=== PATIENT | male | born 1965 | race Asian ===

== ENCOUNTER 2018-04-03 19:43 | Emergency (ER) | payer OTHER ==
[2018-04-03 19:59] VITALS: BP 143/81; TEMP 98.8; BMI 25.4
--- NOTE | 2018-04-03 19:59 | PDOC ---
Rapid Medical Evaluation Time Seen by Provider: 04/03/18 19:55 Medical Evaluation: I have performed a brief in-person evaluation of this patient. The patient presents with a chief complaint of: atraumatic left ankle pain today. patient states he cannot walk. Patient is a diabetic Pertinent physical exam findings: pain with palpation of left ankle mortisse. no swelling, erythema, edema or crepitus I have ordered the following: left ankle xray The patient will proceed to the ED for further evaluation.
--- NOTE | 2018-04-03 21:45 | PDOC ---
History of Present Illness - General Chief Complaint: Pain Stated Complaint: LEG PAIN Time Seen by Provider: 04/03/18 19:55 - History of Present Illness Initial Comments: 52-year-old male presents for evaluation of atraumatic left ankle pain. He denies prior problems with the left ankle. Describes this pain as sharp exacerbated with activity and weightbearing relieved with rest and free of radiation. He points to the posterior aspect in the anterior lateral aspect of the left ankle as the area of his discomfort area 04/03/18 21:41 Past History - Past Medical History Allergies/Adverse Reactions: Allergies Allergy/AdvReac Type Severity Reaction Status Date / Time Sulfa (Sulfonamide Allergy Verified 04/03/18 19:57 Antibiotics) Home Medications: Ambulatory Orders Acarbose [Precose -] 25 mg PO TID 04/03/18 Aspirin [Aspirin EC] 81 mg PO ASDIR 04/03/18 Atorvastatin Calcium 10 mg PO ASDIR 04/03/18 Empagliflozin [Jardiance] 25 mg PO ASDIR 04/03/18 Gabapentin 600 mg PO ASDIR 04/03/18 Glipizide/Metformin HCl [Glipizide-Metformin 5-500 mg] 1 each PO ASDIR 04/03/18 Insulin (LOG) Aspart [NovoLOG -] 0 units SQ BID 04/03/18 Insulin Glargine,Hum.rec.anlog [Basaglar Kwikpen U-100] 100 unit SQ ASDIR Methylprednisolone [Medrol Dose Christian] 4 mg PO ASDIR #21 tablet 04/03/18 Ramipril 5 mg PO ASDIR 04/03/18 Sitagliptin Phos/Metformin HCl [Janumet 50-500 mg Tablet] 1 each PO ASDIR COPD: No Diabetes: Yes HTN: Yes Hypercholesterolemia: Yes Other medical history: back pain - Surgical History Appendectomy: Yes - Suicide/Smoking/Psychosocial Hx Smoking History: Never smoked Review of Systems - Review of Systems Constitutional: Yes: See HPI. No: Chills, Diaphoresis, Fever, Malaise, Night Sweats Musculoskeletal: Yes: Joint Pain, Joint Swelling, Joint Stiffness. No: Back Pain, Gout, Muscle Pain *Physical Exam - Vital Signs Last Vital Signs Temp Pulse Resp BP Pulse Ox 98.8 F 100 H 18 143/81 96 04/03/18 19:58 04/03/18 19:58 04/03/18 19:58 04/03/18 19:58 04/03/18 19:58 - Physical Exam Comments: Right lower extremity is normal skin color and temperature he has full nonpainful range of motion at the knee and ankle without any tenderness Left lower extremity full nonpainful range of motion of the knee by A soft and nontender. Left ankle there is mild swelling about the anterior lateral aspect of the left ankle there is tenderness about the anterior lateral joint line and posterior aspect of the ankle in the area of the insertion of the Achilles tendon. He has negative Mcarthur's test is Achilles tendon is intact his left foot is nontender. He has no gross sensory or motor deficits no evidence of instability neurovascularly intact 04/03/18 21:43 Medical Decision Making - Medical Decision Making Left ankle and foot x-rays have been reviewed there is no acute fracture he has mild degenerative changes no destructive process I will get a uric acid level 04/03/18 21:44 04/03/18 22:33 This is either acute uric acid crystal gout versus pseudogout calcium pyrophosphate. I will start him on a Medrol Dosepak and have him follow-up with orthopedic surgery 04/03/18 22:35 I've advised him on the use of the Medrol Dosepak and explained to him that this may raise his blood glucose he will monitor his glucose levels and adjust his diet accordingly. 04/03/18 22:36 Vital signs were checked prior to discharge his pulse came down *DC/Admit/Observation/Transfer Diagnosis at time of Disposition: Gout attack - Referrals Referrals: Mj Olmedo MD [Primary Care Provider] - Sam Issa MD [Staff Physician] - - Patient Instructions - Post Discharge Activity
[2018-04-03 22:40] VITALS: PULSE 80
== END 2018-04-03 22:40 | disposition home or self-care (01) ==
LOC: JERFT 19:43
DX: M10.9 Gout, unspecified (principal); I10 Essential (primary) hypertension; E11.9 Type 2 diabetes mellitus without complications; Z79.4 Long term (current) use of insulin; Z79.84 Long term (current) use of oral hypoglycemic drugs; E78.00 Pure hypercholesterolemia, unspecified
CPT/HCPCS: 36415; 73610-TC-LT-FY; 73630-TC-LT; 84550; 99281-25

== ENCOUNTER 2018-08-14 08:44 | Day surgery (SDC) | payer OTHER ==
[2018-08-11 15:49] VITALS: BMI 26.2
[2018-08-14 10:00] VITALS: TEMP 97.7
[2018-08-14 12:13] VITALS: BP 116/83; PULSE 71
--- NOTE | 2018-08-15 11:49 | PATH ---
Surgical Pathology Report Patient Name: DAVIDE AUGUSTINE. [facility]. Rec. #: [id number] /Age/Gender: 1965 (Age: 53) / M Account: [id number] Location: [facility]-ENDOSCOPY Taken: 08/14/2018 Received: 08/14/2018 Reported: 08/15/2018 Physicians: May Loza M.D. Specimen(s) Received A: BX 2ND PORTION DUODENUM AND BULB B: BX ANTRUM AND BODY C: BX OF FUNDUS POLYP D: BX GE JUNCTION AND MID ESOPHAGUS Clinical History Rule out ulcer Postoperative diagnosis: Duodenitis, hiatal hernia, gastritis, gastric fundus polyp Final Diagnosis A. DUODENUM, SECOND PORTION AND DUODENAL BULB, BIOPSY: DUODENAL MUCOSA WITH MILD CHRONIC DUODENITIS WITH PRESERVED VILLOUS ARCHITECTURE. B. STOMACH, ANTRUM AND BODY, BIOPSY: GASTRIC ANTRAL AND BODY MUCOSA WITH MILD CHRONIC GASTRITIS AND FOCAL INTESTINAL METAPLASIA. IMMUNOHISTOCHEMICAL STAIN FOR H. PYLORI IS NEGATIVE. C. STOMACH, FUNDUS, POLYP, BIOPSY: FUNDIC GLAND POLYP. IMMUNOHISTOCHEMICAL STAIN FOR H. PYLORI IS NEGATIVE. D. GE JUNCTION AND MID ESOPHAGUS, BIOPSY: SQUAMOUS MUCOSA WITH MILD BASAL CELL HYPERPLASIA AND VASCULAR CONGESTION CONSISTENT WITH MILD REFLUX ESOPHAGITIS. NO COLUMNAR MUCOSA, INTESTINAL METAPLASIA, OR DYSPLASIA IDENTIFIED. Electronically Signed Rafaela Denny M.D. Gross Description A. Received in formalin, labeled "biopsy second portion of duodenum and duodenal bulb" are 3 walters, irregular portions of soft tissue averaging 0.3 cm. in greatest dimension. The specimens are submitted in toto in one cassette. B. Received in formalin, labeled "biopsy antrum and body" are 6 walters, irregular portions of soft tissue ranging from 0.2-0.6 cm. in greatest dimension. The specimens are submitted in toto in one cassette. C. Received in formalin, labeled "biopsy gastric fundus polyp" are 5 walters, irregular portions of soft tissue ranging from 0.2-0.5 cm. in greatest dimension. The specimens are submitted in toto in one cassette. D. Received in formalin, labeled "biopsy GE junction and midesophagus" are 3 walters, irregular portions of soft tissue ranging from 0.3-0.4 cm. in greatest dimension. The specimens are submitted in toto in one cassette. /08/14/2018 saudi08/14/2018
== END 2018-08-14 11:20 | disposition home or self-care (01) ==
LOC: JASU-ENDO 08:44
PROVIDERS: ATTEND Internal Medicine Gastroenterology
PROC: 0DB38ZX Excision of Lower Esophagus, Via Natural or Artificial Opening Endoscopic, Diagnostic (ICD-10-PCS; 2018-08-14)
PROC: 0DB68ZX Excision of Stomach, Via Natural or Artificial Opening Endoscopic, Diagnostic (ICD-10-PCS; 2018-08-14)
PROC: 0DB28ZX Excision of Middle Esophagus, Via Natural or Artificial Opening Endoscopic, Diagnostic (ICD-10-PCS; 2018-08-14)
PROC: 0DB98ZX Excision of Duodenum, Via Natural or Artificial Opening Endoscopic, Diagnostic (ICD-10-PCS; principal; 2018-08-14 10:00)
DX: K20.9 Esophagitis, unspecified (principal); K44.9 Diaphragmatic hernia without obstruction or gangrene; K29.70 Gastritis, unspecified, without bleeding; K31.7 Polyp of stomach and duodenum
CPT/HCPCS: 88305-TC; 88342-TC

== ENCOUNTER 2018-12-22 06:52 | Day surgery (SDC) | payer OTHER ==
[2018-12-21 12:45] VITALS: BMI 24.5
[2018-12-22 07:33] VITALS: TEMP 97.8
[2018-12-22 09:55] VITALS: BP 114/77; PULSE 78
--- NOTE | 2018-12-25 17:02 | PATH ---
Surgical Pathology Report Patient Name: DAVIDE AUGUSTINE. [facility]. Rec. #: [id number] /Age/Gender: 1965 (Age: 53) / M Account: [id number] Location: [facility] Taken: 12/22/2018 Received: 12/22/2018 Reported: 12/25/2018 Physicians: May Loza M.D. Specimen(s) Received RECTAL POLYP Clinical History Screening Postoperative diagnosis: Rectal polyp Final Diagnosis RECTAL POLYP, BIOPSY: HYPERPLASTIC POLYP. Electronically Signed Rafaela Denny M.D. Gross Description Received in formalin, labeled "biopsy rectal polyp" are 2 walters, irregular portions of soft tissue measuring 0.2 and 0.5 cm. in greatest dimension. The specimens are submitted in toto in one cassette. /12/22/201812/22/2018
== END 2018-12-22 09:55 | disposition home or self-care (01) ==
LOC: JASU-ENDO 06:52
PROVIDERS: ATTEND Internal Medicine Gastroenterology
PROC: 0DBP8ZX Excision of Rectum, Via Natural or Artificial Opening Endoscopic, Diagnostic (ICD-10-PCS; principal; 2018-12-22 08:00)
DX: Z12.11 Encounter for screening for malignant neoplasm of colon (principal); K62.1 Rectal polyp; K64.8 Other hemorrhoids
CPT/HCPCS: 88305-TC

== ENCOUNTER → 2024-11-05 | Day surgery (SDC) | payer OTHER ==
[2024-11-01 09:19] VITALS: BMI 27.4
[2024-11-05 10:55] VITALS: TEMP 98
[2024-11-05 11:36] VITALS: PULSE 69
[2024-11-05 11:52] VITALS: BP 103/72; RESP 16
== END | disposition home or self-care (01) ==
LOC: JASU-ENDO 04:42
PROVIDERS: ATTEND Internal Medicine Gastroenterology
PROC: 0DBN8ZX Excision of Sigmoid Colon, Via Natural or Artificial Opening Endoscopic, Diagnostic (ICD-10-PCS; 2024-11-05)
PROC: 0DB98ZX Excision of Duodenum, Via Natural or Artificial Opening Endoscopic, Diagnostic (ICD-10-PCS; 2024-11-05)
PROC: 0DBP8ZX Excision of Rectum, Via Natural or Artificial Opening Endoscopic, Diagnostic (ICD-10-PCS; principal; 2024-11-05 09:30)
DX: Z12.11 Encounter for screening for malignant neoplasm of colon (principal); D12.5 Benign neoplasm of sigmoid colon; D12.8 Benign neoplasm of rectum; K29.50 Unspecified chronic gastritis without bleeding; K44.9 Diaphragmatic hernia without obstruction or gangrene; K31.A12 Gastric intestinal metaplasia without dysplasia, involving the body (corpus); K21.00 Gastro-esophageal reflux disease with esophagitis, without bleeding; Z86.0100 Personal history of colon polyps, unspecified
CPT/HCPCS: 82962; 88305-TC; 88342-TC